=== PATIENT | female | born 1945 | race Caucasian/White ===

== ENCOUNTER 2020-01-27 13:35 | Outpatient (CLI) | payer MEDICARE, OTHER ==
[~2020-01-27] VITALS: Ht 152.4 cm; Wt 72.0 kg
[2020-01-27] MEDS ORDERED: MOBIC15 MG PO (14:26)
[2020-01-27] MEDS ORDERED: WELLBUTRIN XL300 M1 PO (14:27)
[2020-01-27] MEDS ORDERED: PROTONIX 40MG T40 MG PO (14:27)
[2020-01-27] MEDS ORDERED: TOPROL XL 50MG50 MG PO (14:27)
[2020-01-27] MEDS ORDERED: NEURONTIN300 MG/CAP PO (14:27)
[2020-01-27] MEDS ORDERED: RESTORIL 1515 MG/CAP PO (14:28)
[2020-01-27] MEDS ORDERED: DESYREL 50MG50 MG PO (14:28)
[2020-01-27] MEDS ORDERED: ARICEPT10 MG PO (14:29)
[2020-01-27] MEDS ORDERED: FERRO-TIME325 MG PO (14:30)
[2020-01-27 14:42] LABS: BASO # 0.1 (0.0-0.2); BASO % 0.7 % (0.0-2.0); EOS # 0.1 (0.0-0.7); EOS % 1.6 % (0-4.0); GRAN # 4.5 (1.4-6.5); HEMOGLOBIN 12.7 g/dl (12.5-16.0); LYMPH # 2.2 (1.2-3.4); MEAN CELL VOLUME 92 fl (80.0-100.0); MEAN CORPUSCULAR HEMOGLOBIN 29 pg (27.0-31.0); MEAN CORPUSCULAR HGB CONC 32 g/dl (33.0-37.0); MEAN PLATELET VOLUME 11.3 fl (7.4-10.4); MONO # 0.7 (0.1-0.6); MONO % 8.6 % (1.7-9.3); PLATELET COUNT 218 K/mm3 (130-400); RED BLOOD COUNT 4.37 M/mm3 (4.10-5.30); REDCELL DISTRIBUTION WIDTH-CV 15.1 % (11.5-14.5)
[2020-01-27 14:55] LABS: BILIRUBIN,TOTAL 0.6 mg/dL (0.0-1.0); C-REACTIVE PROTEIN 0.9 mg/dL (0.0-0.9); CALCIUM 9.6 mg/dL (8.4-10.2); CREATININE, serum 0.89 (0.52-1.25); POTASSIUM 4.3 mmol/L (3.4-5.0)
[2020-01-27 14:56] VITALS: BP 196/84; PULSE 58; TEMP 97.7
[2020-01-27 15:16] LABS: ERYTHROCYTE SEDIMENTATION RATE 9 mm/hr (0-30)
== END 2020-01-27 16:15 | disposition home or self-care (01) ==
LOC: EUO 13:35 → EDSTATUS 13:36 → EUO 16:15
PROVIDERS: Nurse Practitioner
DX: M86.9 Osteomyelitis, unspecified (principal); A49.01 Methicillin susceptible Staphylococcus aureus infection, unspecified site
CPT/HCPCS: C1751; J0878

== ENCOUNTER 2020-03-08 14:03 | Outpatient (CLI) | payer MEDICARE, OTHER ==
[~2020-03-08] VITALS: Ht 152.4 cm; Wt 81.8 kg
[~2020-03-08 14:03] MED LIST: ARICEPT10 MG PO; DESYREL 50MG50 MG PO; FERRO-TIME325 MG PO; MOBIC15 MG PO; NEURONTIN300 MG/CAP PO; PROTONIX 40MG T40 MG PO; RESTORIL 1515 MG/CAP PO; TOPROL XL 50MG50 MG PO; WELLBUTRIN XL300 M1 PO
[2020-03-08 15:16] VITALS: BP 124/79; PULSE 66; TEMP 98.2
== END 2020-03-08 15:20 | disposition home or self-care (01) ==
LOC: EUO 14:03
DX: M86.9 Osteomyelitis, unspecified (principal); T81.49XA Infection following a procedure, other surgical site, initial encounter